=== PATIENT | female | born 1945 | race Caucasian/White ===

== ENCOUNTER 2023-06-04 17:28 | Observation (INO) | payer OTHER ==
[2023-06-04] MEDS ORDERED: cefTRIAXone SODIUM 1 GM VIAL ONE (19:23)
[2023-06-04 19:24] LABS: HEMATOCRIT 39.2 % (32.4-45.2); HEMOGLOBIN 12.9 G/dL (10.7-15.3); MCH 29.6 pg (25.7-33.7); MEAN CELL VOLUME 89.7 fl (80-96); PLATELET COUNT 199.6 10^3/uL (134-434); RBC 4.37 10^6/uL (3.60-5.2); RDW 15.1 % (11.6-15.6); WHITE BLOOD COUNT 11.6 10^3/uL (4.0-10.8)
[2023-06-04 19:42] LABS: ALBUMIN 3.6 g/dl (3.4-5.0); BLOOD UREA NITROGEN 24.3 mg/dl (7-18); CALCIUM 8.1 mg/dl (8.5-10.1); CREATININE 0.9 mg/dl (0.6-1.3); POTASSIUM 4.3 mmol/L (3.5-5.1); SGOT/AST 18.5 U/L (15-37); SGPT/ALT 10.1 U/L (7-52)
[2023-06-04 19:44] LABS: PLATELET ESTIMATE ADEQUATE
[2023-06-04 21:48] LABS: BILIRUBIN,TOTAL 0.3 mg/dL (0.2-1)
[2023-06-04 21:51] LABS: N-TERMINAL BNP 393.5 pg/ml (5-450)
[2023-06-04 22:02] VITALS: BMI 27.7
[2023-06-04] MEDS ORDERED: DEXTROSE 5%-0.45% SALINE 1,000 ML IV SCH (23:45)
[2023-06-05] MEDS: LEVOTHYROXINE NA 75 MCG TABLET (FP) PO SCH (07:06)
[2023-06-05] MEDS: DIVALPROEX SODIUM 125 MG SPRINKLE CAPS PO SCH ×3 (07:16→21:24)
[2023-06-05 09:07] LABS: BLOOD UREA NITROGEN 21.7 mg/dl (7-18); CALCIUM 8.2 mg/dl (8.5-10.1); CREATININE 0.8 mg/dl (0.6-1.3)
[2023-06-05] MEDS: risperiDONE 0.25 MG TABLET PO SCH (09:21)
[2023-06-05] MEDS: FUROSEMIDE 20 MG TABLET (FP) PO SCH (09:51)
[2023-06-05] MEDS: ESCITALOPRAM OXALATE 10 MG TABLET PO SCH (09:51)
[2023-06-05] MEDS: CEFTRIAXONE 1 GM in DEXTROSE 5%-WATER - 50 ML IVPB SCH (09:52)
[2023-06-05] MEDS ORDERED: ISONIAZID 300 MG TABLET (FP) PO SCH (10:00)
[2023-06-05 11:50] LABS: EOS % 2.2 % (0-4.5); HEMATOCRIT 38.8 % (32.4-45.2); LYMPH % 36.3 % (8-40); MCHC 33.6 g/dl (32.0-36.0); MEAN CELL VOLUME 86.4 fl (80-96); MEAN PLT VOLUME 8.3 fl (7.5-11.1); MONO % 11.7 % (3.8-10.2); NEUT % 48.8 % (42.8-82.8); PLATELET COUNT 208 10^3/uL (134-434); RBC 4.49 M/mm3 (3.60-5.2); RDW 15.3 % (11.6-15.6); WHITE BLOOD COUNT 8.8 K/mm3 (4.0-10.0)
[2023-06-05] MEDS: ROSUVASTATIN CA 10 MG TABLET PO SCH (21:24)
[2023-06-05] MEDS: MEMANTINE HCL 5 MG TABLET (UD) PO SCH (21:24)
[2023-06-06] MEDS: LEVOTHYROXINE NA 75 MCG TABLET (FP) PO SCH (06:15)
[2023-06-06 09:03] LABS: HEMATOCRIT 37.1 % (32.4-45.2); HEMOGLOBIN 12.1 G/dL (10.7-15.3); MCH 29.3 pg (25.7-33.7); MCHC 32.7 g/dl (32.0-36.0); MEAN CELL VOLUME 89.7 fl (80-96); MEAN PLT VOLUME 8.5 fl (7.5-11.1); PLATELET COUNT 219.6 10^3/uL (134-434); RBC 4.14 10^6/uL (3.60-5.2); RDW 15.6 % (11.6-15.6)
[2023-06-06 10:03] LABS: BLOOD UREA NITROGEN 24.3 mg/dl (7-18); CALCIUM 8.1 mg/dl (8.5-10.1); POTASSIUM 4.3 mmol/L (3.5-5.1)
[2023-06-06] MEDS: CEFTRIAXONE 1 GM in DEXTROSE 5%-WATER - 50 ML IVPB SCH (10:57)
[2023-06-06] MEDS: risperiDONE 0.25 MG TABLET PO SCH (10:58)
[2023-06-06] MEDS: DIVALPROEX SODIUM 125 MG SPRINKLE CAPS PO SCH ×2 (10:58→21:19)
[2023-06-06] MEDS: FUROSEMIDE 20 MG TABLET (FP) PO SCH (10:58)
[2023-06-06] MEDS: ESCITALOPRAM OXALATE 10 MG TABLET PO SCH (10:58)
[2023-06-06 13:05] LABS: CREATININE 0.8 mg/dl (0.6-1.3)
[2023-06-06] MEDS: MEMANTINE HCL 5 MG TABLET (UD) PO SCH (21:19)
[2023-06-06] MEDS: ROSUVASTATIN CA 10 MG TABLET PO SCH (21:19)
[2023-06-07 01:54] VITALS: RESP 18
[2023-06-07] MEDS: LEVOTHYROXINE NA 75 MCG TABLET (FP) PO SCH (06:41)
[2023-06-07 10:24] VITALS: BP 130/54; PULSE 68; TEMP 98.6
[2023-06-07] MEDS: risperiDONE 0.25 MG TABLET PO SCH (10:56)
[2023-06-07] MEDS: ESCITALOPRAM OXALATE 10 MG TABLET PO SCH (10:56)
[2023-06-07] MEDS: DIVALPROEX SODIUM 125 MG SPRINKLE CAPS PO SCH (10:56)
[2023-06-07] MEDS: FUROSEMIDE 20 MG TABLET (FP) PO SCH (10:56)
[2023-06-07] MEDS: CEFTRIAXONE 1 GM in DEXTROSE 5%-WATER - 50 ML IVPB SCH (10:56)
== END 2023-06-07 14:48 | disposition home or self-care (01) ==
LOC: FER 17:28 → FM/S 20:10
PROVIDERS: ADMIT Internal Medicine; ATTEND Internal Medicine
PROC: 3E03329 Introduction of Other Anti-infective into Peripheral Vein, Percutaneous Approach (ICD-10-PCS; principal; 2023-06-04)
PROC: 3E0337Z Introduction of Electrolytic and Water Balance Substance into Peripheral Vein, Percutaneous Approach (ICD-10-PCS; 2023-06-04)
DX: N39.0 Urinary tract infection, site not specified (principal); R31.9 Hematuria, unspecified; F03.90 Unspecified dementia, unspecified severity, without behavioral disturbance, psychotic disturbance, mood disturbance, and anxiety; M54.50 Low back pain, unspecified; E03.9 Hypothyroidism, unspecified
CPT/HCPCS: 0241U-QW; 36415; 71045-TC-FY; 76775-TC; 80048; 80053; 81003; 81015; 83880; 84439; 84443; 84484; 85025; 85027; 87086; 87186; 93005; 96361; 96365; 96376; 97116-GP; 97162-GP; 99285-25; G0378